=== PATIENT | female | born 1955 | race Two or more races ===

== ENCOUNTER 2020-03-07 08:51 | Outpatient (CLI) | payer OTHER | END 2020-03-07 08:57 | disposition home or self-care (01) | LOC: RAD 08:51 | PROVIDERS: ATTEND Plastic Surgery | DX: I10 Essential (primary) hypertension (principal) ==

== ENCOUNTER → 2020-03-07 10:11 | Outpatient (CLI) | payer OTHER | END | disposition home or self-care (01) | LOC: LAB 10:11 → EKG 10:11 | PROVIDERS: ATTEND Plastic Surgery | DX: I10 Essential (primary) hypertension (principal); N62 Hypertrophy of breast ==

== ENCOUNTER 2020-03-10 06:36 | Outpatient (CLI) | payer OTHER | END 2020-03-10 06:44 | disposition home or self-care (01) | LOC: LAB 06:36 | PROVIDERS: ATTEND Plastic Surgery | DX: D64.89 Other specified anemias (principal); D68.8 Other specified coagulation defects; N39.0 Urinary tract infection, site not specified ==

== ENCOUNTER 2020-04-05 17:00 | Emergency (ER) | payer OTHER ==
[~2020-04-05] VITALS: Ht 152.4 cm; Wt 69.4 kg
== END 2020-04-05 21:32 | disposition home or self-care (01) ==
LOC: ER 17:00
DX: G89.18 Other acute postprocedural pain (principal); R07.89 Other chest pain; N61.0 Mastitis without abscess; T81.49XA Infection following a procedure, other surgical site, initial encounter; Y83.8 Other surgical procedures as the cause of abnormal reaction of the patient, or of later complication, without mention of misadventure at the time of the procedure

== ENCOUNTER 2020-04-23 07:57 | Emergency (ER) | payer OTHER ==
[~2020-04-23] VITALS: Ht 149.9 cm; Wt 68.0 kg
[2020-04-23] MEDS ORDERED: ZESTORETIC 20-1 EACH (08:17)
[2020-04-23] MEDS ORDERED: SYNTHROID112 MCG (08:17)
[2020-04-23] MEDS ORDERED: ACID REDUCER20 M1 (08:17)
[2020-04-23] MEDS ORDERED: SIMVASTATIN20 MG (08:18)
[2020-04-23] MEDS ORDERED: NORFLEX100MG PO (10:22)
[2020-04-23] MEDS ORDERED: KETO10TA2 PO (10:22)
== END 2020-04-23 10:30 | disposition home or self-care (01) ==
LOC: ER 07:57
DX: M54.5 Low back pain (principal)

== ENCOUNTER 2021-01-23 18:51 | Emergency (ER) | payer OTHER ==
[~2021-01-23] VITALS: Ht 147.3 cm; Wt 69.4 kg
[~2021-01-23 18:51] MED LIST: ACID REDUCER20 M1; KETO10TA2 PO; NORFLEX100MG PO; SIMVASTATIN20 MG; SYNTHROID112 MCG; ZESTORETIC 20-1 EACH
== END 2021-01-23 20:35 | disposition home or self-care (01) ==
LOC: ER 18:51
DX: K13.79 Other lesions of oral mucosa (principal)

== ENCOUNTER 2023-03-06 23:48 | Emergency (ER) | payer OTHER ==
[~2023-03-06] VITALS: Ht 152.4 cm; Wt 68.5 kg
[2023-03-07] MEDS ORDERED: NEURONTIN300 MG
[2023-03-07 01:27] LABS: HEMATOCRIT 38.8 % (36.0-45.00); HEMOGLOBIN 13.3 g/dL (12.0-15.00); MEAN CELL VOLUME 85.2 fL (80.00-100.00); MEAN CORPUSCULAR HEMOGLOBIN 29.3 pg (27.00-32.0); MEAN CORPUSCULAR HGB CONC 34.4 g/dl (32.0-36.0); PLATELET COUNT 216 K/uL (150-450); RED BLOOD COUNT 4.55 M/uL (4.00-6.00); RED CELL DISTRIBUTION WIDTH 13.8 % (11.5-14.5)
[2023-03-07] MEDS ORDERED: PAXLOVID 300-11 EAC1 PO (01:58)
== END 2023-03-07 02:00 ==
LOC: ER 23:48
PROVIDERS: General Practice
DX: U07.1 COVID-19 (principal); R50.9 Fever, unspecified; Z88.2 Allergy status to sulfonamides; I10 Essential (primary) hypertension; E03.9 Hypothyroidism, unspecified
CPT/HCPCS: 36415; 96372; 99282; J1885; J2360

== ENCOUNTER 2023-12-23 05:50 | Day surgery (SDC) | payer OTHER ==
[2023-12-14 08:53] LABS: HEMATOCRIT 40.4 % (36.0-45.00); HEMOGLOBIN 13.5 g/dL (12.0-15.00); MEAN CELL VOLUME 88.3 fL (80.00-100.00); MEAN CORPUSCULAR HEMOGLOBIN 29.4 pg (27.00-32.0); MEAN CORPUSCULAR HGB CONC 33.3 g/dl (32.0-36.0); PLATELET COUNT 242 K/uL (150-450); RED BLOOD COUNT 4.58 M/uL (4.00-6.00); RED CELL DISTRIBUTION WIDTH 13.6 % (11.5-14.5)
[2023-12-14 09:11] VITALS: BP 129/79
[2023-12-14 09:19] LABS: URINE APPEARANCE Clear; URINE BILIRRUBIN Negative (NEGATIVE); URINE BLOOD Negative; URINE COLOR Yellow; URINE GLUCOSE Negative (NEGATIVE); URINE KETONE Negative (NEGATIVE); URINE LEUKOCYTE Trace; URINE NITRATE Negative; URINE PROTEIN Negative (NEGATIVE); URINE UROBILINOGEN 0.2 E.U./dl
[2023-12-14 09:20] LABS: INR 0.99; PARTIAL THROMBOPLASTIN TIME 25.9 SECONDS (22.0-34.0); PROTHROMBIN TIME 10.8 SECONDS (9.0-11.5)
[2023-12-14 09:22] LABS: URINE BACTERIA 278.2 uL (0.0-1933); URINE EPITHELIAL CELLS 8.1 uL (0.0-38.8); URINE RBC 2.4 uL (0.0-20.8); URINE WBC 17.1 uL (0.0-23.2)
[2023-12-14 10:05] LABS: ALBUMIN 3.6 gm/dL (3.4-5.0); CALCIUM 9.4 mg/dL (8.5-10.1); CREATININE SERUM 0.59 mg/dL (0.55-1.02); GFR 100.77; PHOSPHOROUS 3.4 mg/dL (2.5-4.9); POTASSIUM 3.59 mEq/L (3.5-5.1)
[~2023-12-23] VITALS: Ht 152.4 cm; Wt 72.6 kg
[~2023-12-23 05:50] MED LIST changes: +FLONASE16 GM NS; +GABAPENTIN300 M2 PO; +MONTELUKAST SOD10 MG PO; +NEURONTIN300 MG; +OMEPRAZOLE20 MG PO; +PAXLOVID 300-11 EAC1 PO; +SYNTHROID112 MCG PO; +ZESTRIL5 MG PO; +[UNRECOGNIZED DRUG - OTHER]
[2023-12-23] MEDS ORDERED: LIDOCAINE HCL 1%/EPINEPHRINE 20ML VIAL IJ ONE (11:30)
[2023-12-23] MEDS ORDERED: CEFAZOLIN SODIUM 1,000 MG VIAL IV ONE (11:30)
[2023-12-23] MEDS ORDERED: OXYMETAZOLINE HCL 15 ML NASAL DROPS NASAL ONE (11:30)
[2023-12-23] MEDS ORDERED: CEPHALEXIN500 MG PO (12:20)
[2023-12-23] MEDS ORDERED: AYR SALINE50 ML NASAL (12:20)
== END 2023-12-23 16:15 | disposition home or self-care (01) ==
LOC: CIR.AMB 05:50
PROVIDERS: ATTEND Otolaryngology Otology & Neurotology
DX: J32.4 Chronic pansinusitis (principal); J34.3 Hypertrophy of nasal turbinates; J34.2 Deviated nasal septum; Z88.2 Allergy status to sulfonamides